=== PATIENT | female | born 1985 | race Caucasian/White ===

== ENCOUNTER → 2023-06-23 13:22 | Outpatient (REF) | payer BC, SELFPAY | LOC: RAD 13:22 | PROVIDERS: ATTENDING PHYSICIAN Emergency Medicine | DX: R07.89 Other chest pain (principal); R05.3 Chronic cough; R06.2 Wheezing | CPT/HCPCS: 71046 ==

== ENCOUNTER → 2024-02-13 08:18 | Outpatient (REF) | payer BC, SELFPAY ==
[2024-02-13 09:13] LABS: % Basophils 0.8 % (0-2); % Immature Granulocytes 0.2 % (0-0.5); % Lymphocytes 21.7 % (20.5-51.1); % Monocytes 8.9 % (1.7-9.3); % Neutrophils 66.4 % (42.2-75.2); Absolute Basophils 0.1 10^3/uL (0-0.2); Absolute Eosinophils 0.1 10^3/uL (0-0.7); Absolute Lymphocytes 1.4 10^3/uL (1.2-3.4); Absolute Monocytes 0.6 10^3/uL (0.1-0.6); Absolute Neutrophils 4.3 10^3/uL (1.4-6.5); Hematocrit 44.2 % (37.0-47.0); Hemoglobin 14.8 g/dL (12.0-16.0); Mean Corp Hgb Conc. 33.5 g/dL (33.0-37.0); Mean Corpuscular Hgb 31.2 pg (27.0-31.0); Mean Corpuscular Volume 93.1 fL (81.0-99.0); Nucleated Red Blood Cells % 0 %; Platelet Count 364 10^3/uL (130-400); Red Blood Cell Count 4.75 10^6/uL (4.20-5.40); Red Cell Dist. Width 12.4 % (11.5-14.5); White Blood Cell Count 6.4 10^3/uL (4.8-10.8)
[2024-02-13 09:23] LABS: D-Dimer 0.35 ug/mlFEU (0.00-0.50)
[2024-02-13 09:43] LABS: Urine Albumin Negative (Neg - Trace); Urine Bilirubin Negative (Negative); Urine Character Clear (Clear); Urine Color Yellow; Urine Glucose Negative (Negative); Urine Ketone Trace (Negative); Urine Leukocyte Negative (Negative); Urine Nitrite Negative (Negative); Urine Occult Blood Negative (Negative); Urine Urobilinogen Negative (Neg - 1+)
[2024-02-13 10:05] LABS: ALT (SGPT) 33 U/L (0-35); AST (SGOT) 33 U/L (14-36); Albumin 4.9 g/dl (3.5-5.0); Alkaline Phosphatase 67 U/L (38-126); Blood Urea Nitrogen 6 mg/dl (7-17); Calcium 9.5 mg/dl (8.4-10.2); Carbon Dioxide 28 mmol/L (22-30); Chloride 101 mmol/L (98-107); Glucose 88 mg/dl (70-99); HDL Cholesterol 87 mg/dl; LDL Cholesterol, Calculated 65 mg/dl; Potassium 4.4 mmol/L (3.5-5.1); Sodium 139 mmol/L (135-145); Total Bilirubin 0.3 mg/dl (0.2-1.3); Total Cholesterol 169 mg/dl (50-199); Total Protein 7.8 g/dl (6.3-8.2); Triglyceride 89 mg/dl (10-149); Very Low Density Lipoprotein 17 mg/dl (0-30); eGFR > 60.00
[2024-02-13 10:32] LABS: TSH 1.82 uIU/ml (0.47-4.68)
== END ==
LOC: REG 08:18
PROVIDERS: ATTENDING PHYSICIAN Family Medicine
DX: Z00.00 Encounter for general adult medical examination without abnormal findings (principal)
CPT/HCPCS: 36415; 80053; 80061; 81003; 84443; 85025; 85379

== ENCOUNTER 2024-07-24 00:34 | Emergency (ER) | payer BC, SELFPAY ==
[2024-07-24 00:44] VITALS: BP 135/90
[2024-07-24 01:03] LABS: % Basophils 0.5 % (0-2); % Eosinophils 0.6 % (0-6); % Immature Granulocytes 0.2 % (0-0.5); % Lymphocytes 6.5 % (20.5-51.1); % Monocytes 6.3 % (1.7-9.3); % Neutrophils 85.9 % (42.2-75.2); Absolute Basophils 0.1 10^3/uL (0-0.2); Absolute Eosinophils 0.1 10^3/uL (0-0.7); Absolute Lymphocytes 0.8 10^3/uL (1.2-3.4); Absolute Monocytes 0.8 10^3/uL (0.1-0.6); Absolute Neutrophils 11.2 10^3/uL (1.4-6.5); Hematocrit 40.3 % (37.0-47.0); Hemoglobin 13.6 g/dL (12.0-16.0); Mean Corp Hgb Conc. 33.7 g/dL (33.0-37.0); Mean Corpuscular Hgb 31.3 pg (27.0-31.0); Mean Corpuscular Volume 92.6 fL (81.0-99.0); Mean Platelet Volume 8.4 fL (7.4-10.4); Nucleated Red Blood Cells % 0 %; Platelet Count 291 10^3/uL (130-400); Red Blood Cell Count 4.35 10^6/uL (4.20-5.40); Red Cell Dist. Width 11.9 % (11.5-14.5)
[2024-07-24 01:11] LABS: HCG, Serum Qualitative Screen Negative
[2024-07-24 01:19] LABS: ALT (SGPT) 74 U/L (0-35); AST (SGOT) 163 U/L (14-36); Albumin 4.6 g/dl (3.5-5.0); Alkaline Phosphatase 85 U/L (38-126); Blood Urea Nitrogen 6 mg/dl (7-17); Carbon Dioxide 26 mmol/L (22-30); Chloride 107 mmol/L (98-107); Glucose 154 mg/dl (70-99); Lipase 146 U/L (23-300); Potassium 3.7 mmol/L (3.5-5.1); Sodium 142 mmol/L (135-145); Total Bilirubin 0.4 mg/dl (0.2-1.3); Total Protein 7.4 g/dl (6.3-8.2); eGFR > 60.00
[2024-07-24] MEDS: ZOFRAN 4 MG IV (01:51)
[2024-07-24] MEDS: DILAUDID 0.5 MG IV (01:54)
[2024-07-24 01:59] VITALS: BMI 26.9
[2024-07-24 02:03] VITALS: BP 117/84
[2024-07-24 05:30] VITALS: BP 100/62
--- NOTE | 2024-07-24 05:44 | ED.GENMED ---
History of Present Illness
General
Chief Complaint: Abdominal Pain
Source: patient
Exam Limitations: none
Time Seen by Provider: 07/24/24 01:33
Nursing documentation reviewed up to this point in time: agreed with
History of Present Illness
History of Present Illness:
Pleasant 8-year-old female presents to the emergency department with left upper quadrant abdominal pain that has been present and worsening for the last 4 hours. States that she developed nausea most recently. Concern for food poisoning. She was
at her friend several days ago where coworkers had similar symptoms.
Past History
Past History
ED Past Medical History: None
ED Past Surgical History: Tonsilectomy
Social History
Tobacco: Non-smoker
Drug: None
Personal:
Living: with family
Employment: Employed
Phy Exam
Physical Exam
Physical Exam:
Physical Exam
Vital signs and allergy list reviewed and agreed with.
GENERAL: Alert , in moderate apparent distress
EYE: pupils equal, EOMI, anicteric
NECK: Supple, no significant adenopathy. No masses. Trachea midline
ENT: Oropharynx is clear, mmm.
CARDIAC: Regular rate and rhythm . No M/R/G
LUNGS: Clear breath sounds bilaterally, no acute respiratory distress, no wheezes/rales/rhonchi
ABDOMEN: Soft, without focal tenderness, positive guarding. No rigidity. Tenderness. Normal bowel sounds x 4 quadrants
NEUROLOGICAL: Alert and oriented, no focal neuro deficits
SKIN: Warm and dry, skin intact.
MUSCULOSKELETAL: No edema, well perfused. Moves all 4 extremities
PSYCH: Normal and appropriate interaction.
Course
Orders/Labs/Results
Orders:
Orders
07/24/24 00:48
Test Result ONCE
07/24/24 00:54
Complete Blood Count/With Diff Urgent
Comprehensive Metabolic Panel Urgent
HCG, Serum Qualitative Screen Urgent
Lipase Urgent
07/24/24 01:43
HYDROmorphone [Dilaudid] 0.5 mg IV NOW STA
Ondansetron Injectable [Zofran] 4 mg IV NOW STA
07/24/24 01:44
CT Abd/pelvis W Iv Cont Urgent
Comment:
Reason For Exam: LUQ abd pain
07/24/24 04:13
US Abdomen Complete/Upper Urgent
Comment:
Reason For Exam: upper abd pain
07/24/24 05:52
Sucralfate Suspension [Carafate Suspension] 1 gm PO NOW STA
Abnormal Lab Results
07/24/24
00:54
WBC 13.0 H 10^3/uL
(4.8-10.8)
MCH 31.3 H pg
(27.0-31.0)
Absolute Neuts (auto) 11.2 H 10^3/uL
(1.4-6.5)
Absolute Lymphs (auto) 0.8 L 10^3/uL
(1.2-3.4)
Absolute Monos (auto) 0.8 H 10^3/uL
(0.1-0.6)
Neutrophils % 85.9 H %
(42.2-75.2)
Lymphocytes % 6.5 L %
(20.5-51.1)
BUN 6 L mg/dl
(7-17)
Glucose 154 H mg/dl
(70-99)
AST 163 H U/L
(14-36)
ALT 74 H U/L
(0-35)
07/24/24 00:54
07/24/24 00:54
Vital Signs
Initial and Last Documented VS:
Initial Vital Signs
Temp Pulse Resp BP Pulse Ox
98.4 F 93 20 135/90 99
07/24/24 00:44 07/24/24 00:44 07/24/24 00:44 07/24/24 00:44 07/24/24 00:44
Last Documented Vital Signs
Temp Pulse Resp BP Pulse Ox
98.1 F 94 18 100/62 98
07/24/24 05:30 07/24/24 05:30 07/24/24 05:30 07/24/24 05:30 07/24/24 05:30
*Critical Care Note
Total Time (30-74mins, 75-104mins- exclusive of procedures): Not Applicable
Update Note
Update Note:
ABDOMINAL ULTRASOUND
Compared to CT today
IMPRESSION
3 mm nonmobile nonshadowing polyp anterior wall of the gallbladder.
The gallbladder and visualized biliary system are otherwise unremarkable. No gallstones or sonographic Presley's sign. Spleen and kidneys appear unremarkable. Remainder of the visualized upper abdomen is unremarkable.
Case faxed/finalized at 5:38 AM eastern time . If there are any questions please contact me at [phone].
Patient states that she had food poisoning on Monday. She did have nausea and vomiting. That seem to have resolved. Last night she had left upper quadrant abdominal pain for the last 4 hours. She did have nausea. After first dose of pain
medicine patient was observed for several hours. She states that the pain improved though she did have a little bit of abdominal cramping. Reviewed all lab work and imaging studies with patient.
Patient states that she still does have mild cramping but much less severe than prior
ED Attending Note
-
Portions of this chart may have been created with voice recognition software.� Occasional wrong word or��sound alike� substitutions may have occurred due to the inherent limitations of voice recognition software.
Discharge Plan
Departure
Patient Disposition: Home (Routine Discharge)
Date of Disposition: 07/24/24
Time of Disposition: 05:49
Patient with high blood pressure during this ER visit?: No
Discharge Problem:
Abdominal pain
Instructions: Abdominal Pain
Prescriptions:
New
sucralfate [Carafate] 100 mg/mL suspension
10 ml PO QID Qty: 200 0RF
No Action
Vitamin Tablet
1 tab PO DAILY
ferrous sulfate [FeroSul] 325 mg (65 mg iron) Tablet
325 mg PO BID Qty: 0 0RF
sennosides-docusate sodium [Senna Plus] 8.6-50 mg Tablet
1 tab PO DAILYPRN PRN (Reason: constipation) Qty: 0 0RF
ibuprofen 600 mg Tablet
600 mg PO Q6HPRN PRN (Reason: moderate pain/cramps) Qty: 45 0RF
acetaminophen 325 mg Tablet
650 mg PO Q4HPRN PRN (Reason: mild pain) Qty: 0 0RF
escitalopram oxalate [Lexapro] 5 mg tablet
5 mg PO DAILY Qty: 30 1RF
Referrals:
Getachew Lee, DO [Community] -
UNKNOWN - PT DOES,NOT KNOW [Family Provider] -
Stand Alone Forms: Return to Work
Activity Restrictions/Additional Instructions:
Thank You for choosing [facility].
It was a pleasure meeting you and taking part in your care. We hope for your continued healing and wellness.
Please read discharge instructions in their entirety. However, they are for general education and may not describe your exact diagnosis at discharge. Information on your ER visit and medical conditions were discussed with you along with appropriate
follow up information...
If indicated, please take your medications as instructed and indicated on discharge paperwork.
Please schedule a follow up appointment as directed. Call to schedule an appointment
Please return to the emergency department with ANY change in, persisting, or worsening of symptoms. If any of your symptoms do not improve, or persist, or become more severe within 6-12 hours, please return to the emergency department for further
care.
Please return to the emergency department if you develop a headache, neck pain/stiffness, fever greater than 100.4F, chest pain, shortness of breath, persistent nausea, vomiting, slurred speech, difficulty walking, numbness/tingling, weakness, signs
of infection or any other symptoms that are worrisome to you.
If you have any questions or concerns please do not hesitate to call the Hospital at or E-mail me directly at [email or web address]
Interventions
Interventions:
*Risk Screen - Suicide Last Done: 07/24/24 00:46
*General Assessment Last Done: 07/24/24 00:46
*Neglect/Abuse Screening Last Done: 07/24/24 02:00
*ED- Fall Risk Assessment Last Done: 07/24/24 02:05
*ED COVID-19 Vaccine History Last Done: 07/24/24 00:46
*Nursing Disposition Last Done: 07/24/24 06:19
WJ-Kdketh-Jdelhlldtw Assessment Last Done: 07/24/24 02:00
Discharge Date and Time
Discharge Date/Time: 07/24/24 07:19
Print Language: [place]
[2024-07-24] MEDS: CARAFATE SUSPENSION 1 GM PO (06:09)
== END 2024-07-24 07:19 | disposition home or self-care (01) ==
LOC: EMR 00:34
PROVIDERS: EMERGENCY PHYSICIAN Student in an Organized Health Care Education/Training Program
DX: R10.12 Left upper quadrant pain (principal); K82.4 Cholesterolosis of gallbladder; R11.2 Nausea with vomiting, unspecified
CPT/HCPCS: 96374; 96375; 99284; 74177; 76700; 80053; 83690; 84703; 85025; Q9967

== ENCOUNTER 2024-08-19 06:27 | Day surgery (SDC) | payer BC, SELFPAY | END 2024-08-19 12:21 | disposition home or self-care (01) | LOC: GI 06:27 | PROVIDERS: ATTENDING PHYSICIAN Internal Medicine Gastroenterology | DX: K62.5 Hemorrhage of anus and rectum (principal); K64.0 First degree hemorrhoids; Q43.8 Other specified congenital malformations of intestine; R10.13 Epigastric pain; K44.9 Diaphragmatic hernia without obstruction or gangrene; K31.7 Polyp of stomach and duodenum; D12.0 Benign neoplasm of cecum; D12.2 Benign neoplasm of ascending colon; D12.5 Benign neoplasm of sigmoid colon; K29.50 Unspecified chronic gastritis without bleeding; K31.9 Disease of stomach and duodenum, unspecified; K22.9 Disease of esophagus, unspecified | CPT/HCPCS: 45385; 45380; 43239; 88305; 88342 ==